=== PATIENT | male | born 1965 | race Caucasian/White ===

== ENCOUNTER 2019-11-17 06:26 | Emergency (ER) | payer MEDICAID ==
[~2019-11-17] VITALS: Ht 170.2 cm; Wt 72.6 kg
[2019-11-17 06:35] VITALS: BP_SYST 128
--- NOTE | 2019-11-17 06:39 | NUR ---
Patient to ER bed 7 to gown for evaluation. Side rails up. Report given to JUAN MARTINEZ.
--- NOTE | 2019-11-17 06:40 | NUR ---
Pt brought in by self. Pt awake, alert, oriented x4. Pt states he has back pain 10/10 for approx 2 days. Pt denies chest pain, nausea, vomiting, diarrhea, shortness of breath. No other medcial complaint at this time. Pt has no signs of acute distress. VSS. Pt resting in ED bed.
--- NOTE | 2019-11-17 06:40 | NUR ---
ER at bedside examining patient.
[2019-11-17] MEDS ORDERED: KETOROLAC TROMETHAMINE 60 MG/2 ML VIAL IM ONE (07:00)
[2019-11-17 07:17] VITALS: BP_SYST 128
--- NOTE | 2019-11-17 07:17 | NUR ---
Patient given written and verbal discharge instructions and verbalizes understanding. ER MD discussed with patient the results and treatment provided. Patient in stable condition. ID arm band removed. No IV Rx of [place] and Motrin given. Patient educated on pain management and to follow up with PMD. Pain Scale 0/10. Opportunity for questions provided and answered. Medication side effect fact sheet provided.
== END 2019-11-17 07:17 | disposition home or self-care (01) ==
LOC: SED 06:26
DX: M54.5 Low back pain (principal); F17.200 Nicotine dependence, unspecified, uncomplicated
CPT/HCPCS: 96372; 99283; J1885

== ENCOUNTER 2024-07-09 22:25 | Emergency (ER) | payer MEDICAID, OTHER ==
[~2024-07-09] VITALS: Ht 170.2 cm; Wt 72.6 kg
[2024-07-09 22:34] VITALS: BP_SYST 106; PULSE 107; RESP 20; TEMP 97.7; O2SAT 95
[2024-07-10 00:02] LABS: INFLUENZA TYPE A Negative (NEGATIVE); INFLUENZA TYPE B NEGATIVE (NEGATIVE)
[2024-07-10] MEDS ORDERED: IBUP-1969 PO (00:24)
[2024-07-10] MEDS ORDERED: PRED20TA PO (00:24)
[2024-07-10 00:39] VITALS: BP_SYST 112; PULSE 78; RESP 18; TEMP 97.9; O2SAT 97
[2024-07-10] MEDS ORDERED: FAMO40TA71 PO (11:44)
[2024-07-10] MEDS ORDERED: FEXO180T94 PO (11:44)
[2024-07-10] MEDS ORDERED: METH-776 PO (11:44)
== END 2024-07-10 00:41 | disposition home or self-care (01) ==
LOC: SED 22:25
DX: R05.9 Cough, unspecified (principal); Z20.822 Contact with and (suspected) exposure to COVID-19; Z90.49 Acquired absence of other specified parts of digestive tract; Z98.890 Other specified postprocedural states; Z88.5 Allergy status to narcotic agent
CPT/HCPCS: 36415; 99283

== ENCOUNTER 2024-07-10 09:43 | Emergency (ER) | payer OTHER ==
[~2024-07-10] VITALS: Ht 170.2 cm; Wt 72.6 kg
[~2024-07-10 09:43] MED LIST: IBUP-1969 PO; PRED20TA PO
[2024-07-10 09:46] VITALS: BP_SYST 76; PULSE 99; RESP 18; TEMP 96.9; O2SAT 95
[2024-07-10] MEDS: DEXAMETHASONE SOD PHOSPHATE 10 MG/ML VIAL IV ONE (10:15)
[2024-07-10] MEDS: FAMOTIDINE PF 20 MG/2 ML VIAL IVP ONE (10:17)
[2024-07-10] MEDS: NACL 0.9% 1,000 ML IV ONE (10:42)
[2024-07-10] MEDS ORDERED: METH-776 PO (11:44)
[2024-07-10] MEDS ORDERED: FAMO40TA71 PO (11:44)
[2024-07-10] MEDS ORDERED: FEXO180T94 PO (11:44)
[2024-07-10 11:58] VITALS: BP_SYST 102; PULSE 68; RESP 20; TEMP 97.6; O2SAT 100
== END 2024-07-10 11:58 | disposition home or self-care (01) ==
LOC: SED 09:43
DX: T78.40XA Allergy, unspecified, initial encounter (principal); F17.200 Nicotine dependence, unspecified, uncomplicated; Z88.5 Allergy status to narcotic agent; X58.XXXA Exposure to other specified factors, initial encounter
CPT/HCPCS: 99284; 96374; 96361; 96375; J1100; J3490; J7030